=== PATIENT | male | born 1975 | race Caucasian/White ===

== ENCOUNTER 2018-01-05 21:10 | Emergency (ER) | payer MEDICAID ==
--- NOTE | 2018-01-05 22:51 | ED PDOC ---
Arrival/HPI - General Chief Complaint: Back Pain Time Seen by Provider: 01/05/18 22:42 Historian: Patient - History of Present Illness Narrative History of Present Illness (Text): 01/05/18 22:48 A 42 year old male, who denies any past medical history, presents to the emergency department complaining of lower back pain since today. Patient reports he injured his back while lifting some heavy luggage. Patient denies any other injuries, fever, chills, nausea, vomiting, abdominal pain, chest pain , shortness of breath, headache, dizziness or any other complaints. PMD: Dr. Harden Time/Duration: Other (today) Symptom Course: Unchanged Quality: Other Context: Other Past Medical History - Provider Review Nursing Documentation Reviewed: Yes - Infectious Disease Hx of Infectious Diseases: None - Cardiac Hx Cardiac Disorders: No - Pulmonary Hx Respiratory Disorders: No - Neurological Hx Neurological Disorder: No - HEENT Hx HEENT Disorder: No - Renal Hx Renal Disorder: No - Endocrine/Metabolic Hx Endocrine Disorders: No - Hematological/Oncological Hx Blood Disorders: No - Integumentary Hx Dermatological Disorder: No - Musculoskeletal/Rheumatological Hx Musculoskeletal Disorders: No - Gastrointestinal Hx Gastrointestinal Disorders: No - Genitourinary/Gynecological Hx Genitourinary Disorders: No - Psychiatric Hx Psychophysiologic Disorder: No Hx Substance Use: No - Anesthesia Hx Anesthesia: No Hx Anesthesia Reactions: No Hx Malignant Hyperthermia: No Family/Social History - Physician Review Nursing Documentation Reviewed: Yes Family/Social History: No Known Family HX Smoking Status: electronic Hx Alcohol Use: No Hx Substance Use: No Allergies/Home Meds Allergies/Adverse Reactions: Allergies No Known Allergies Allergy (Verified 01/05/18 21:51) Review of Systems - Physician Review All systems were reviewed & negative as marked: Yes - Review of Systems Constitutional: absent: Fevers, Night Sweats Respiratory: absent: SOB Cardiovascular: absent: Chest Pain Gastrointestinal: absent: Abdominal Pain, Nausea, Vomiting Musculoskeletal: Back Pain (lower) Neurological: absent: Headache, Dizziness Physical Exam Vital Signs Reviewed: Yes Vital Signs Temp Pulse Resp BP Pulse Ox 01/06/18 00:41 98.0 F 82 17 122/78 98 01/05/18 21:48 98.7 F 87 18 104/75 95 Temperature: Afebrile Blood Pressure: Normal Pulse: Regular Respiratory Rate: Normal Appearance: Positive for: Well-Appearing, Non-Toxic, Comfortable Pain Distress: None Mental Status: Positive for: Alert and Oriented X 3 - Systems Exam Head: Present: Atraumatic, Normocephalic Pupils: Present: PERRL Extroacular Muscles: Present: EOMI Conjunctiva: Present: Normal Respiratory/Chest: Present: Clear to Auscultation, Good Air Exchange. No: Respiratory Distress, Accessory Muscle Use Cardiovascular: Present: Regular Rate and Rhythm, Normal S1, S2. No: Murmurs Abdomen: No: Tenderness Back: Present: Paraspinal Tenderness (lower lumbar). No: CVA Tenderness, Midline Tenderness, Pain with Leg Raise Neurological: Present: GCS=15, CN II-XII Intact, Speech Normal, Motor Func Grossly Intact, Normal Sensory Function Skin: Present: Warm, Dry, Normal Color. No: Rashes Psychiatric: Present: Alert, Oriented x 3, Normal Insight, Normal Concentration Medical Decision Making ED Course and Treatment: 01/05/18 22:48 Impression: A 42 year old male with lower back pain Plan: -- Flexeril and Toradol -- Reassess and disposition Progress Notes: 01/06/18 00:26 On re-evaluation, the patient feels better and is in no acute distress. I have discussed the plan with the patient, who expresses understanding. Patient in agreement with plan to discharged home. Patient is stable for discharge. Patient was instructed to follow up with physician or return if symptoms persist /worsen or new concerning symptoms arise. - Medication Orders Current Medication Orders: Discontinued Medications Cyclobenzaprine HCl (Flexeril) 10 mg PO ONCE ONE Stop: 01/05/18 22:48 Last Admin: 01/05/18 23:04 Dose: 10 mg Ketorolac Tromethamine (Toradol) 60 mg IM ONCE ONE Stop: 01/05/18 22:48 Last Admin: 01/05/18 23:04 Dose: 60 mg MAR Pain Assessment Document 01/05/18 23:04 IT (Rec: 01/05/18 23:05 IT [email or web address] Pain Reassessment Is this a pain reassessment? No Sleep Is patient sleeping during reassessment? Yes Location Left, Right or Bilateral Right IM Administration Charges Document 01/05/18 23:04 IT (Rec: 01/05/18 23:05 IT [email or web address] Injection Site MAR Injection Site Right Deltoid Charges for Administration # of IM Administrations 1 - Scribe Statement The provider has reviewed the documentation as recorded by the Dana Schofield Provider Dana Attestation: All medical record entries made by the Tomibe were at my direction and personally dictated by me. I have reviewed the chart and agree that the record accurately reflects my personal performance of the history, physical exam, medical decision making, and the department course for this patient. I have also personally directed, reviewed, and agree with the discharge instructions and disposition. Disposition/Present on Arrival - Present on Arrival Any Indicators Present on Arrival: No History of DVT/PE: No History of Uncontrolled Diabetes: No Urinary Catheter: No History of Decub. Ulcer: No History Surgical Site Infection Following: None - Disposition Have Diagnosis and Disposition been Completed?: Yes Diagnosis: Low back strain, Muscle spasm Disposition: HOME/ ROUTINE Disposition Time: 00:26 Patient Plan: Discharge Condition: GOOD Additional Instructions: Rest/no strenuous physical activity/take meds as prescribed/follow up with your doctor Prescriptions: Cyclobenzaprine [Cyclobenzaprine HCl] 10 mg PO TID PRN #15 tab PRN Reason: Muscle Spasm Naproxen [Naprosyn] 500 mg PO BID PRN #14 tab PRN Reason: Pain Referrals: Javi Dodson MD [Primary Care Provider] - Follow up with primary Forms: [employer] ([employer])
[2018-01-06 00:44] VITALS: BP 122/78; PULSE 82; RESP 17; TEMP 98; O2SAT 98
== END 2018-01-06 00:44 | disposition home or self-care (01) ==
LOC: ED 21:10
DX: S39.012A Strain of muscle, fascia and tendon of lower back, initial encounter (principal); X50.0XXA Overexertion from strenuous movement or load, initial encounter; X50.9XXA Other and unspecified overexertion or strenuous movements or postures, initial encounter; M62.830 Muscle spasm of back
CPT/HCPCS: 96372; 99282; J1885

== ENCOUNTER 2019-02-19 00:52 | Observation (INO) | payer MEDICAID ==
--- NOTE | 2019-02-19 01:20 | ED PDOC ---
Arrival/HPI - General Chief Complaint: Chest Pain Time Seen by Provider: 02/19/19 00:56 Historian: Patient - History of Present Illness Narrative History of Present Illness (Text): 02/19/19 01:17 43 year old male, with no significant past medical history, presents to the emergency department with chest discomfort, for 2 days. Patient states symptoms are intermittent. Patient denies any associated shortness of breath. Patient also informs of some occasional back pain. Patient denies any fever, chills, cough, abdominal pain, nausea, vomiting, diarrhea, or any other complaints. Patient informs he is a smoker and has a family history of heart disease. Time/Duration: < week (2 days) Symptom Onset: Gradual Symptom Course: Unchanged, Intermittent Activities at Onset: Light Context: Home Past Medical History - Provider Review Nursing Documentation Reviewed: Yes - Infectious Disease Hx of Infectious Diseases: None - Cardiac Hx Cardiac Disorders: No - Pulmonary Hx Respiratory Disorders: No - Neurological Hx Neurological Disorder: No - HEENT Hx HEENT Disorder: No - Renal Hx Renal Disorder: No - Endocrine/Metabolic Hx Endocrine Disorders: No - Hematological/Oncological Hx Blood Disorders: No - Integumentary Hx Dermatological Disorder: No - Musculoskeletal/Rheumatological Hx Musculoskeletal Disorders: No - Gastrointestinal Hx Gastrointestinal Disorders: No - Genitourinary/Gynecological Hx Genitourinary Disorders: No - Psychiatric Hx Psychophysiologic Disorder: No Hx Substance Use: No - Anesthesia Hx Anesthesia: No Hx Anesthesia Reactions: No Hx Malignant Hyperthermia: No Family/Social History - Physician Review Nursing Documentation Reviewed: Yes Family/Social History: No Known Family HX Smoking Status: Light Smoker < 10 Cigarettes Daily Hx Alcohol Use: No Hx Substance Use: No Allergies/Home Meds Allergies/Adverse Reactions: Allergies No Known Allergies Allergy (Verified 01/05/18 21:51) Home Medications: Home Meds Medication Instructions Recorded Confirmed No Known Home Med 02/19/19 02/19/19 Review of Systems - Physician Review All systems were reviewed & negative as marked: Yes - Review of Systems Constitutional: absent: Fevers, Night Sweats Respiratory: absent: SOB, Cough Cardiovascular: Chest Pain Gastrointestinal: absent: Abdominal Pain, Diarrhea, Nausea, Vomiting Musculoskeletal: Back Pain Physical Exam - Systems Exam Head: Present: Atraumatic, Normocephalic Pupils: Present: PERRL Extroacular Muscles: Present: EOMI Conjunctiva: Present: Normal Mouth: Present: Moist Mucous Membranes Neck: Present: Normal Range of Motion Respiratory/Chest: Present: Clear to Auscultation, Good Air Exchange. No: Respiratory Distress, Accessory Muscle Use Cardiovascular: Present: Regular Rate and Rhythm, Normal S1, S2. No: Murmurs Abdomen: No: Tenderness, Distention, Peritoneal Signs Back: Present: Normal Inspection Upper Extremity: Present: Normal Inspection. No: Cyanosis, Edema Lower Extremity: Present: Normal Inspection. No: Edema Neurological: Present: GCS=15, CN II-XII Intact, Speech Normal Skin: Present: Warm, Dry, Normal Color. No: Rashes Psychiatric: Present: Alert, Oriented x 3, Normal Insight, Normal Concentration Medical Decision Making ED Course and Treatment: 02/19/19 01:22 Impression: 43 year old male presents with chest discomfort. Plan: -- EKG -- Cardiac Iso, CMP -- CBC, Platelets -- Celio X-ray -- Aspirin -- Reassess and disposition Prior Visits: Notes and results from previous visits were reviewed. Progress Notes: EKG reviewed by me, shows: Normal sinus rhythm @86 bpm No acute changes 02/19/19 01:59 Chest X-ray reviewed by me, shows: No acute process 02/19/19 02:17 Case discussed with medical coding technician and Dr Garza who accept patient to the hospitalist service. - RAD Interpretation Radiology Orders: 02/19/19 01:12 CHEST PORTABLE [RAD] Stat - Medication Orders Current Medication Orders: Aspirin (Aspirin) 325 mg PO ONCE STA Stop: 02/19/19 01:15 - Scribe Statement The provider has reviewed the documentation as recorded by the Dana Carlton Provider Scribe Attestation: All medical record entries made by the Scribe were at my direction and personally dictated by me. I have reviewed the chart and agree that the record accurately reflects my personal performance of the history, physical exam, medical decision making, and the department course for this patient. I have also personally directed, reviewed, and agree with the discharge instructions and disposition. Disposition/Present on Arrival - Present on Arrival Any Indicators Present on Arrival: No History of DVT/PE: No History of Uncontrolled Diabetes: No Urinary Catheter: No History of Decub. Ulcer: No History Surgical Site Infection Following: None - Disposition Have Diagnosis and Disposition been Completed?: Yes Diagnosis: Chest pain Disposition: HOSPITALIZED Disposition Time: 02:17 Patient Plan: Observation Patient Problems: Current Active Problems Problem Status Onset Chest pain Acute Condition: STABLE
[2019-02-19 01:27] LABS: HEMOGLOBIN 15.5 g/dL (14.0-18.0); MEAN CELL VOLUME 86.9 fl (80.0-105.0); MEAN CORPUSCULAR HEMOGLOBIN 29.9 pg (25.0-35.0); MEAN CORPUSCULAR HGB CONC 34.4 g/dl (31.0-37.0); MEAN PLATELET VOLUME 8.9 fl (7.0-11.0); RBC 5.19 10^6/uL (3.5-6.1); RED CELL DISTRIBUTION WIDTH 13.2 % (11.5-14.5); WHITE BLOOD COUNT 9.5 10^3/uL (4.5-11.0)
[2019-02-19] MEDS ORDERED: Aspirin 325 mg EC Tablets PO ONE (01:28)
[2019-02-19 01:31] LABS: INR 1.11; PARTIAL THROMBOPLASTIN TIME 39.1 Seconds (26.9-38.3); PROTHROMBIN TIME 12.3 SECONDS (9.4-12.5)
[2019-02-19 01:34] LABS: ALB/GLOB RATIO 1.2 (1.1-1.8); ALBUMIN 4.5 g/dL (3.0-4.8); ALT/SGPT 31 U/L (7-56); AST/SGOT 35 U/L (17-59); BLOOD UREA NITROGEN 15 mg/dL (7-21); CALCIUM 9.3 mg/dL (8.4-10.5); GFR NON-AFRICAN AMERICAN > 60
[2019-02-19 01:45] LABS: TROPONIN I < 0.01 ng/mL
--- NOTE | 2019-02-19 02:55 | CP.PCM.HP ---
<Capo Snyder - Last Filed: 02/19/19 06:22> History of Present Illness - History of Present Illness History of Present Illness: PGY-1 History and Physical for Dr. Garza Patient is a 43 year old male with no significant PMHx who presents with chief complaint of chest pain for the past 2 days. Patient states he first noticed the chest pain while he was driving. The pain feels like a "pulsating" pain in the left parasternal region, but patient denies feeling palpitations. The chest pain does not radiate to shoulders, back, or jaw. Patient has not experienced this pain in the past. Denies any recent heavy lifting. Patient has not tried anything to alleviate pain. Pain not affected by positional changes. Denies fevers, chills, DAVIS, n/v/d/c, dizziness, SOB, fatigue. PMHx: No known PMHx Surgical hx: Denies Allergies: NKA Social Hx: Smokes one Juul pod per day which he has done for some time. Also smokes 2 cigarettes daily. Denies alcohol or drug use. Family hx: Father - [place] age 65 Medications: No home meds PMD: Dr. Howard Present on Admission - Present on Admission Any Indicators Present on Admission: No Review of Systems - Constitutional Constitutional: absent: Chills, Fever - EENT Eyes: absent: Blurred Vision, Photophobia Nose/Mouth/Throat: absent: Nasal Congestion, Nasal Discharge - Cardiovascular Cardiovascular: Chest Pain, Chest Pain at Rest. absent: Chest Pain with Activity, Dyspnea, Pain Radiating to Arm/Neck/Jaw, Palpitations, Pedal Edema, Radiating Pain, Rapid Heart Rate - Respiratory Respiratory: absent: Cough, Wheezing - Gastrointestinal Gastrointestinal: absent: Nausea, Vomiting - Genitourinary Genitourinary: absent: Dysuria, Flank Pain - Musculoskeletal Musculoskeletal: absent: Back Pain, Neck Pain - Neurological Neurological: absent: Dizziness, Numbness, Focal Weakness, Syncope, Weakness - Psychiatric Psychiatric: absent: Anxiety, Depression - Hematologic/Lymphatic Hematologic: absent: Easy Bleeding, Easy Bruising Past Patient History - Infectious Disease Hx of Infectious Diseases: None - Past Social History Smoking Status: Light Smoker < 10 Cigarettes Daily - CARDIAC Hx Cardiac Disorders: No - PULMONARY Hx Respiratory Disorders: No - NEUROLOGICAL Hx Neurological Disorder: No - HEENT Hx HEENT Problems: No - RENAL Hx Chronic Kidney Disease: No - ENDOCRINE/METABOLIC Hx Endocrine Disorders: No - HEMATOLOGICAL/ONCOLOGICAL Hx Blood Disorders: No - INTEGUMENTARY Hx Dermatological Problems: No - MUSCULOSKELETAL/RHEUMATOLOGICAL Hx Musculoskeletal Disorders: No - GASTROINTESTINAL Hx Gastrointestinal Disorders: No - GENITOURINARY/GYNECOLOGICAL Hx Genitourinary Disorders: No - PSYCHIATRIC Hx Psychophysiologic Disorder: No Hx Substance Use: No - SURGICAL HISTORY Hx Surgeries: No - ANESTHESIA Hx Anesthesia: No Hx Anesthesia Reactions: No Hx Malignant Hyperthermia: No Meds Allergies/Adverse Reactions: Allergies Allergy/AdvReac Type Severity Reaction Status Date / Time No Known Allergies Allergy Verified 01/05/18 21:51 Physical Exam - Constitutional Appears: Non-toxic, No Acute Distress - Head Exam Head Exam: ATRAUMATIC, NORMOCEPHALIC - Eye Exam Eye Exam: EOMI, Normal appearance - ENT Exam ENT Exam: Mucous Membranes Moist - Respiratory Exam Respiratory Exam: Clear to Auscultation Bilateral, NORMAL BREATHING PATTERN. absent: Rales, Rhonchi, Wheezes - Cardiovascular Exam Cardiovascular Exam: REGULAR RHYTHM, RRR, +S1, +S2. absent: Diastolic murmur, JVD, +S4, Systolic Murmur Additional comments: No reproducible tenderness on palpation - GI/Abdominal Exam GI & Abdominal Exam: Normal Bowel Sounds, Soft. absent: Distended, Tenderness - Extremities Exam Extremities exam: Positive for: normal inspection, pedal pulses present. Negative for: pedal edema, tenderness - Neurological Exam Neurological exam: Alert, CN II-XII Intact, Oriented x3 - Psychiatric Exam Psychiatric exam: Normal Affect, Normal Mood - Skin Skin Exam: Dry, Intact, Normal Color, Warm Results - Vital Signs Recent Vital Signs: Last Vital Signs Temp 98.1 F 02/19/19 01:15 Pulse 82 02/19/19 02:18 Resp 18 02/19/19 02:18 BP 113/83 02/19/19 02:18 Pulse Ox 96 02/19/19 02:18 - Labs Result Diagrams: 02/19/19 01:15 02/19/19 01:15 Labs: Laboratory Results - last 24 hr 02/19/19 02/19/19 02/19/19 01:15 01:15 01:15 WBC 9.5 RBC 5.19 Hgb 15.5 Hct 45.1 MCV 86.9 MCH 29.9 MCHC 34.4 RDW 13.2 Plt Count 311 MPV 8.9 PT 12.3 INR 1.11 APTT 39.1 H Sodium 140 Potassium 4.0 Chloride 105 Carbon Dioxide 24 Anion Gap 15 BUN 15 Creatinine 0.9 Est GFR ( Amer) > 60 Est GFR (Non-Af Amer) > 60 Random Glucose 82 Calcium 9.3 Total Bilirubin 0.5 AST 35 ALT 31 Alkaline Phosphatase 69 Lactate Dehydrogenase 404 Total Creatine Kinase 128 Troponin I < 0.01 Total Protein 8.3 Albumin 4.5 Globulin 3.8 Albumin/Globulin Ratio 1.2 Assessment & Plan - Assessment and Plan (Free Text) Assessment: Atypical Chest Pain - ACS vs PE vs Costochondritis vs GERD -Monitor on telemetry -EKG NSR at 86, no ST or T changes -Initial troponins negative -PERC negative -CXR prelim 02/19 shows no active disease -ASA 325 given once in ED -EKG/troponins 0700,1300 - f/u -TSH/free T4 - f/u -Lipid panel - f/u -A1C - f/u Meds -ASA 81 mg PO daily -Lipitor 40 mg PO HS Assessment and plan discussed with Dr. Kayla Snyder, PGY-1 <Chhaya Garza - Last Filed: 02/19/19 19:15> Results - Vital Signs Recent Vital Signs: Last Vital Signs Temp 98.0 F 02/19/19 05:51 Pulse 82 02/19/19 10:00 Resp 20 02/19/19 05:51 BP 128/70 02/19/19 05:51 Pulse Ox 96 02/19/19 05:51 - Labs Result Diagrams: 02/19/19 06:05 02/19/19 06:05 Labs: Laboratory Results - last 24 hr 02/19/19 02/19/19 02/19/19 01:15 01:15 01:15 WBC 9.5 RBC 5.19 Hgb 15.5 Hct 45.1 MCV 86.9 MCH 29.9 MCHC 34.4 RDW 13.2 Plt Count 311 MPV 8.9 Neut % (Auto) Lymph % (Auto) Barnes % (Auto) Eos % (Auto) Baso % (Auto) Lymph # (Auto) Barnes # (Auto) Eos # (Auto) Baso # (Auto) Absolute Neuts (auto) PT 12.3 INR 1.11 APTT 39.1 H Sodium 140 Potassium 4.0 Chloride 105 Carbon Dioxide 24 Anion Gap 15 BUN 15 Creatinine 0.9 Est GFR ( Amer) > 60 Est GFR (Non-Af Amer) > 60 Random Glucose 82 Hemoglobin A1c Calcium 9.3 Total Bilirubin 0.5 AST 35 ALT 31 Alkaline Phosphatase 69 Lactate Dehydrogenase 404 Total Creatine Kinase 128 Troponin I < 0.01 Total Protein 8.3 Albumin 4.5 Globulin 3.8 Albumin/Globulin Ratio 1.2 Triglycerides Cholesterol LDL Cholesterol Direct HDL Cholesterol Free T4 TSH 3rd Generation 02/19/19 02/19/19 02/19/19 06:05 06:05 06:05 WBC 10.2 RBC 4.93 Hgb 14.4 Hct 42.7 MCV 86.6 MCH 29.2 MCHC 33.7 RDW 13.2 Plt Count 283 MPV 8.9 Neut % (Auto) 52.9 Lymph % (Auto) 37.5 H Barnes % (Auto) 6.4 H Eos % (Auto) 2.8 Baso % (Auto) 0.4 Lymph # (Auto) 3.8 H Barnes # (Auto) 0.7 H Eos # (Auto) 0.3 Baso # (Auto) 0.04 Absolute Neuts (auto) 5.39 PT INR APTT Sodium 139 Potassium 3.7 Chloride 105 Carbon Dioxide 27 Anion Gap 11 BUN 18 Creatinine 1.0 Est GFR ( Amer) > 60 Est GFR (Non-Af Amer) > 60 Random Glucose 96 Hemoglobin A1c Calcium 9.0 Total Bilirubin 0.4 AST 24 ALT 30 Alkaline Phosphatase 59 Lactate Dehydrogenase Total Creatine Kinase Troponin I Total Protein 7.2 Albumin 4.0 Globulin 3.2 Albumin/Globulin Ratio 1.2 Triglycerides 192 H Cholesterol 203 H LDL Cholesterol Direct 133 H HDL Cholesterol 37 Free T4 0.89 TSH 3rd Generation 2.62 02/19/19 02/19/19 02/19/19 06:05 07:00 12:50 WBC RBC Hgb Hct MCV MCH MCHC RDW Plt Count MPV Neut % (Auto) Lymph % (Auto) Barnes % (Auto) Eos % (Auto) Baso % (Auto) Lymph # (Auto) Barnes # (Auto) Eos # (Auto) Baso # (Auto) Absolute Neuts (auto) PT INR APTT Sodium Potassium Chloride Carbon Dioxide Anion Gap BUN Creatinine Est GFR ( Amer) Est GFR (Non-Af Amer) Random Glucose Hemoglobin A1c 5.9 Calcium Total Bilirubin AST ALT Alkaline Phosphatase Lactate Dehydrogenase Total Creatine Kinase Troponin I < 0.01 < 0.01 Total Protein Albumin Globulin Albumin/Globulin Ratio Triglycerides Cholesterol LDL Cholesterol Direct HDL Cholesterol Free T4 TSH 3rd Generation Attending/Attestation - Attestation I have personally seen and examined this patient.: Yes I have fully participated in the care of the patient.: Yes I have reviewed all pertinent clinical information: Yes Notes (Text): 02/19/19 19:15 Seen and examined. Discussed with resident. C/O non-specified, atypical CP.
[2019-02-19 05:52] VITALS: BP 128/70; RESP 20; TEMP 98; O2SAT 96
[2019-02-19 06:41] LABS: BASO # 0.04 K/mm3 (0.0-2.0); BASO % 0.4 % (0.0-3.0); EOS # 0.3 (0.0-0.7); EOS % 2.8 % (1.5-5.0); HEMOGLOBIN 14.4 g/dL (14.0-18.0); LYMPH # 3.8 (1.2-3.4); LYMPH % 37.5 % (22.0-35.0); MEAN CELL VOLUME 86.6 fl (80.0-105.0); MEAN CORPUSCULAR HEMOGLOBIN 29.2 pg (25.0-35.0); MEAN CORPUSCULAR HGB CONC 33.7 g/dl (31.0-37.0); MEAN PLATELET VOLUME 8.9 fl (7.0-11.0); MONO # 0.7 (0.1-0.6); MONO % 6.4 % (1.0-6.0); RBC 4.93 10^6/uL (3.5-6.1); RED CELL DISTRIBUTION WIDTH 13.2 % (11.5-14.5); WHITE BLOOD COUNT 10.2 10^3/uL (4.5-11.0)
[2019-02-19 07:02] LABS: LDL CHOLESTEROL 133 mg/dL (0-129)
[2019-02-19 07:08] LABS: FREE T4 0.89 ng/dL (0.78-2.19)
[2019-02-19 07:24] LABS: ALB/GLOB RATIO 1.2 (1.1-1.8); ALT/SGPT 30 U/L (7-56); AST/SGOT 24 U/L (17-59); BLOOD UREA NITROGEN 18 mg/dL (7-21); GFR NON-AFRICAN AMERICAN > 60; HDL CHOLESTEROL 37 mg/dL (29-60)
--- NOTE | 2019-02-19 09:00 | RAD ---
Date of service: 02/19/2019 HISTORY: chest pain COMPARISON: No prior. TECHNIQUE: 1 view obtained. FINDINGS: LUNGS: No active pulmonary disease. PLEURA: No significant pleural effusion identified, no pneumothorax apparent. CARDIOVASCULAR: No aortic atherosclerotic calcification present. Normal cardiac size. No pulmonary vascular congestion. OSSEOUS STRUCTURES: No significant abnormalities. VISUALIZED UPPER ABDOMEN: Normal. OTHER FINDINGS: None. IMPRESSION: No active disease.
--- NOTE | 2019-02-19 11:11 | CP.PCM.DIS ---
<Vasquez Abebeant - Last Filed: 02/20/19 14:26> Provider - Provider Date of Admission: 02/19/19 02:15 Attending physician: Blanquita Mayo MD Primary care physician: Javi Dodson MD Consults: 02/19/19 06:38 Cardiology Consult Routine Comment: Consulting Provider: Juan Ley Consulting Physician: Juan Ley Reason for Consult: Chest pain, r/o ACS Time Spent in preparation of Discharge (in minutes): 45 Diagnosis - Discharge Diagnosis (1) Chest pain Status: Acute Hospital Course - Lab Results Lab Results: Most Recent Lab Values WBC 10.2 10^3/uL (4.5-11.0) 02/19/19 06:05 RBC 4.93 10^6/uL (3.5-6.1) 02/19/19 06:05 Hgb 14.4 g/dL (14.0-18.0) 02/19/19 06:05 Hct 42.7 % (42.0-52.0) 02/19/19 06:05 MCV 86.6 fl (80.0-105.0) 02/19/19 06:05 MCH 29.2 pg (25.0-35.0) 02/19/19 06:05 MCHC 33.7 g/dl (31.0-37.0) 02/19/19 06:05 RDW 13.2 % (11.5-14.5) 02/19/19 06:05 Plt Count 283 10^3/uL (120.0-450.0) 02/19/19 06:05 MPV 8.9 fl (7.0-11.0) 02/19/19 06:05 Neut % (Auto) 52.9 % (50.0-68.0) 02/19/19 06:05 Lymph % (Auto) 37.5 % (22.0-35.0) H 02/19/19 06:05 Mcmullen % (Auto) 6.4 % (1.0-6.0) H 02/19/19 06:05 Eos % (Auto) 2.8 % (1.5-5.0) 02/19/19 06:05 Baso % (Auto) 0.4 % (0.0-3.0) 02/19/19 06:05 Lymph # (Auto) 3.8 (1.2-3.4) H 02/19/19 06:05 Mcmullen # (Auto) 0.7 (0.1-0.6) H 02/19/19 06:05 Eos # (Auto) 0.3 (0.0-0.7) 02/19/19 06:05 Baso # (Auto) 0.04 K/mm3 (0.0-2.0) 02/19/19 06:05 Absolute Neuts (auto) 5.39 (1.4-6.5) 02/19/19 06:05 PT 12.3 SECONDS (9.4-12.5) 02/19/19 01:15 INR 1.11 02/19/19 01:15 APTT 39.1 Seconds (26.9-38.3) H 02/19/19 01:15 Sodium 139 mmol/L (132-148) 02/19/19 06:05 Potassium 3.7 mmol/L (3.6-5.0) 02/19/19 06:05 Chloride 105 mmol/L (98-107) 02/19/19 06:05 Carbon Dioxide 27 mmol/L (21-33) 02/19/19 06:05 Anion Gap 11 (10-20) 02/19/19 06:05 BUN 18 mg/dL (7-21) 02/19/19 06:05 Creatinine 1.0 mg/dl (0.8-1.5) 02/19/19 06:05 Est GFR ( Amer) > 60 02/19/19 06:05 Est GFR (Non-Af Amer) > 60 02/19/19 06:05 Random Glucose 96 mg/dL (70-110) 02/19/19 06:05 Calcium 9.0 mg/dL (8.4-10.5) 02/19/19 06:05 Total Bilirubin 0.4 mg/dL (0.2-1.3) 02/19/19 06:05 AST 24 U/L (17-59) 02/19/19 06:05 ALT 30 U/L (7-56) 02/19/19 06:05 Alkaline Phosphatase 59 U/L (38-126) 02/19/19 06:05 Lactate Dehydrogenase 404 U/L (333-699) 02/19/19 01:15 Total Creatine Kinase 128 U/L (35-230) 02/19/19 01:15 Troponin I < 0.01 ng/mL 02/19/19 07:00 Total Protein 7.2 g/dL (5.8-8.3) 02/19/19 06:05 Albumin 4.0 g/dL (3.0-4.8) 02/19/19 06:05 Globulin 3.2 gm/dL 02/19/19 06:05 Albumin/Globulin Ratio 1.2 (1.1-1.8) 02/19/19 06:05 Triglycerides 192 mg/dL (35-160) H 02/19/19 06:05 Cholesterol 203 mg/dL (130-200) H 02/19/19 06:05 LDL Cholesterol Direct 133 mg/dL (0-129) H 02/19/19 06:05 HDL Cholesterol 37 mg/dL (29-60) 02/19/19 06:05 Free T4 0.89 ng/dL (0.78-2.19) 02/19/19 06:05 TSH 3rd Generation 2.62 mIU/mL (0.46-4.68) 02/19/19 06:05 - Hospital Course Hospital Course: Kaz Abebe DO 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 Patient states he first noticed the chest pain while he was driving. The pain feels like a "pulsating" pain in the left parasternal region, but patient denies feeling palpitations. Initial EKG showed no ST/T wave abnormalities; NSR 86/min. Troponins negative x3, repeat EKG following AM NSR HR 86 w/o ST/T wave abnormalities noted. Cardiology was consulted during this admission. Echo study performed and reported as normal echo study EF 67%. Cardiology recommended patient start a low triglyceride, low cholesterol diet and repeat blood work in 2-3 months. He is to be DC home and will perform stress test as outpt. Morning prior to discharge, patient was seen and evaluated at bedside. No acute events reported overnight Patient reported no fevers, chills, shortness of breath, abd pain, n/v/d/c, ur inary discomfort. Chest pain had resolved at time of evaluation in the morning. Discharge medications, and discharge plans were reviewed with patient Patient verbalized understanding of discharge plan as written below Patient was seen, evaluated, and discussed w/ attending physician Dr. Mayo prior to discharge - Date & Time of H&P Date of H&P: 02/09/19 Time of H&P: 13:29 Discharge Exam - Head Exam Head Exam: ATRAUMATIC, NORMOCEPHALIC - Eye Exam Eye Exam: EOMI, PERRL - Respiratory Exam Respiratory Exam: Clear to PA & Lateral, NORMAL BREATHING PATTERN, UNREMARKABLE - GI/Abdominal Exam GI & Abdominal Exam: Normal Bowel Sounds, Unremarkable - Neurological Exam Neurological exam: Alert, CN II-XII Intact, Oriented x3 - Psychiatric Exam Psychiatric exam: Normal Affect, Normal Mood - Skin Skin Exam: Dry, Normal Color, Warm Discharge Plan - Follow Up Plan Condition: STABLE Disposition: HOME/ ROUTINE Patient education suggested?: Yes Instructions: Chest Pain (DC) Additional Instructions: please follow up with your primary care doctor within 3 to 5 days of discharge Outpatient stress test is arranged by cardiology adal Rogers receive a call regarding scheduling of stress test Follow up with cardiology regarding outpatient stress test If your symptoms worsen, or new concerning symptoms arise please go to the nearest emergency department immediately Referrals: Javi Dodson MD [Primary Care Provider] - Juan Ley MD [Staff Provider] - <Blanquita Mayo - Last Filed: 02/20/19 15:23> Provider - Provider Date of Admission: 02/19/19 02:15 Attending physician: Blanquita Mayo MD Primary care physician: Javi Dodson MD Consults: 02/19/19 06:38 Cardiology Consult Routine Comment: Consulting Provider: Juan Ley Consulting Physician: Juan Ley Reason for Consult: Chest pain, r/o ACS Hospital Course - Lab Results Lab Results: Most Recent Lab Values WBC 10.2 10^3/uL (4.5-11.0) 02/19/19 06:05 RBC 4.93 10^6/uL (3.5-6.1) 02/19/19 06:05 Hgb 14.4 g/dL (14.0-18.0) 02/19/19 06:05 Hct 42.7 % (42.0-52.0) 02/19/19 06:05 MCV 86.6 fl (80.0-105.0) 02/19/19 06:05 MCH 29.2 pg (25.0-35.0) 02/19/19 06:05 MCHC 33.7 g/dl (31.0-37.0) 02/19/19 06:05 RDW 13.2 % (11.5-14.5) 02/19/19 06:05 Plt Count 283 10^3/uL (120.0-450.0) 02/19/19 06:05 MPV 8.9 fl (7.0-11.0) 02/19/19 06:05 Neut % (Auto) 52.9 % (50.0-68.0) 02/19/19 06:05 Lymph % (Auto) 37.5 % (22.0-35.0) H 02/19/19 06:05 Mcmullen % (Auto) 6.4 % (1.0-6.0) H 02/19/19 06:05 Eos % (Auto) 2.8 % (1.5-5.0) 02/19/19 06:05 Baso % (Auto) 0.4 % (0.0-3.0) 02/19/19 06:05 Lymph # (Auto) 3.8 (1.2-3.4) H 02/19/19 06:05 Mcmullen # (Auto) 0.7 (0.1-0.6) H 02/19/19 06:05 Eos # (Auto) 0.3 (0.0-0.7) 02/19/19 06:05 Baso # (Auto) 0.04 K/mm3 (0.0-2.0) 02/19/19 06:05 Absolute Neuts (auto) 5.39 (1.4-6.5) 02/19/19 06:05 PT 12.3 SECONDS (9.4-12.5) 02/19/19 01:15 INR 1.11 02/19/19 01:15 APTT 39.1 Seconds (26.9-38.3) H 02/19/19 01:15 Sodium 139 mmol/L (132-148) 02/19/19 06:05 Potassium 3.7 mmol/L (3.6-5.0) 02/19/19 06:05 Chloride 105 mmol/L (98-107) 02/19/19 06:05 Carbon Dioxide 27 mmol/L (21-33) 02/19/19 06:05 Anion Gap 11 (10-20) 02/19/19 06:05 BUN 18 mg/dL (7-21) 02/19/19 06:05 Creatinine 1.0 mg/dl (0.8-1.5) 02/19/19 06:05 Est GFR ( Amer) > 60 02/19/19 06:05 Est GFR (Non-Af Amer) > 60 02/19/19 06:05 Random Glucose 96 mg/dL (70-110) 02/19/19 06:05 Hemoglobin A1c 5.9 % (4.2-6.5) 02/19/19 06:05 Calcium 9.0 mg/dL (8.4-10.5) 02/19/19 06:05 Total Bilirubin 0.4 mg/dL (0.2-1.3) 02/19/19 06:05 AST 24 U/L (17-59) 02/19/19 06:05 ALT 30 U/L (7-56) 02/19/19 06:05 Alkaline Phosphatase 59 U/L (38-126) 02/19/19 06:05 Lactate Dehydrogenase 404 U/L (333-699) 02/19/19 01:15 Total Creatine Kinase 128 U/L (35-230) 02/19/19 01:15 Troponin I < 0.01 ng/mL 02/19/19 12:50 Total Protein 7.2 g/dL (5.8-8.3) 02/19/19 06:05 Albumin 4.0 g/dL (3.0-4.8) 02/19/19 06:05 Globulin 3.2 gm/dL 02/19/19 06:05 Albumin/Globulin Ratio 1.2 (1.1-1.8) 02/19/19 06:05 Triglycerides 192 mg/dL (35-160) H 02/19/19 06:05 Cholesterol 203 mg/dL (130-200) H 02/19/19 06:05 LDL Cholesterol Direct 133 mg/dL (0-129) H 02/19/19 06:05 HDL Cholesterol 37 mg/dL (29-60) 02/19/19 06:05 Free T4 0.89 ng/dL (0.78-2.19) 02/19/19 06:05 TSH 3rd Generation 2.62 mIU/mL (0.46-4.68) 02/19/19 06:05 Attending/Attestation - Attestation I have personally seen and examined this patient.: Yes I have fully participated in the care of the patient.: Yes I have reviewed all pertinent clinical information, including history, physical exam and plan: Yes Notes (Text): 02/20/19 15:15 Attending note ; Patient seen and examined with resident. Patient is alert and awake. Denies any chest pain, shortness of breath. denies any abdominal pain, nausea, vomiting. Patient is a 43 year old male with PMHx smoking , obesity is admitted for chest pain. 1. Chest Pain; EKG showed normal sinus rhythm without acute ST-T changes. Cardiac enzymes negative. Cardiology evaluation appreciated. Outpatient stress test will be recommended. Arranged for 03/13/19. 2. Active smoking; smoking cessation is strongly recommended . 3. Hypercholesterolemia; dietary education given. Patient is advised to follow- up with fasting lipid profile a few months. Patient will be discharged home today. Follow-up with PMD . 02/20/19 15:22 02/20/19 15:22
[2019-02-19 11:47] VITALS: PULSE 82
--- NOTE | 2019-02-19 12:17 | CARD ---
APPROVED REPORT Date of service: 02/19/2019 EKG Measurement Heart [id number] <Conclusion> Normal sinus rhythm Normal ECG
--- NOTE | 2019-02-19 17:07 | CARD ---
APPROVED REPORT Date of service: 02/19/2019 EXAM: Two-dimensional and M-mode echocardiogram with Doppler and color Doppler. INDICATION Abnormal EKG/Arrhythmia Mitral Valve Disease 2D DIMENSIONS Left Atrium (2D)3.2 (1.6-4.0cm)IVSd1.2 (0.7-1.1cm) LVDd3.5 (3.9-5.9cm)PWd1.2 (0.7-1.1cm) LVDs2.2 (2.5-4.0cm)FS (%) 36.8 % LVEF (%)67.6 (>50%) M-Mode DIMENSIONS Aortic Root2.90 (2.2-3.7cm)Aortic Cusp Exc.1.90 (1.5-2.0cm) Aortic Valve AoV Peak Phyhphtp431.0cm/Jimi Peak GR.5mmHg Mitral Valve MV E Wmninlts51.7cm/sMV A Miueoowl84.6cm/sE/A ratio1.2 TDI E/Lateral E'0.0E/Medial E'0.0 LEFT VENTRICLE The left ventricle is normal size. There is normal left ventricular wall thickness. The left ventricular function is normal. The left ventricular ejection fraction is within the normal range. There is normal LV segmental wall motion. The left ventricular diastolic function is normal. RIGHT VENTRICLE The right ventricle is normal size. There is normal right ventricular wall thickness. The right ventricular systolic function is normal. ATRIA The left atrium size is normal. The right atrium size is normal. AORTIC VALVE The aortic valve is normal in structure. No aortic regurgitation is present. There is no aortic valvular stenosis. MITRAL VALVE The mitral valve is not well visualized. There is no mitral valve regurgitation noted. There is no mitral valve stenosis. TRICUSPID VALVE The tricuspid valve is normal in structure. There is no tricuspid valve regurgitation noted. PULMONIC VALVE The pulmonary valve is normal in structure. There is no pulmonic valvular regurgitation. GREAT VESSELS The aortic root is normal in size. The IVC is normal in size and collapses >50% with inspiration. PERICARDIAL EFFUSION There is no pericardial effusion. <Conclusion> The left ventricle is normal size. There is normal left ventricular wall thickness. The left ventricular function is normal. The left ventricular ejection fraction is within the normal range. There is normal LV segmental wall motion. The left ventricular diastolic function is normal.
--- NOTE | 2019-02-19 17:46 | CARD ---
APPROVED REPORT Date of service: 02/19/2019 EKG Measurement Heart [id number] <Conclusion> Normal sinus rhythm Normal ECG
--- NOTE | 2019-02-20 03:02 | CON ---
DATE: 02/19/2019 LOCATION: Patient in room 269, bed 2. REASON FOR CONSULTATION: Chest pain. HISTORY OF PRESENT ILLNESS: A 43-year-old male admitted with a history that since last 2 to 3 days, he is getting throbbing type of pain at localized point on the left lower chest. It lasts 3 to 4 hours, then it gets relieved by itself and then it comes back, but it has no relation to exertion, no relation to deep breathing, no relation to change of posture. He never had any exertional chest pain in the past. It is not associated with any diaphoresis or any radiation. PAST MEDICAL HISTORY: Not significant. PERSONAL HISTORY: He smokes 2 to 3 cigarettes a day and denies drinking. FAMILY HISTORY: Positive for coronary artery disease, both mother and father had coronary artery disease. ALLERGIES: PATIENT DENIES ANY ALLERGIES. MEDICATIONS AT HOME: Patient does not take any medicines at home. REVIEW OF SYSTEMS: All the systems reviewed. Positives mentioned in HPI. Others were negative. PHYSICAL EXAMINATION VITAL SIGNS: Blood pressure 128/70, respiration 20, pulse 80, temperature 98.0. HEENT: Head is normocephalic. Eyes, pupils normal. Conjunctiva normal. Nose and throat normal. NECK: JVP low. Carotids equal. THORAX: AP diameter normal. LUNGS: Clear. CARDIOVASCULAR: S1, S2. ABDOMEN: Soft. No tenderness. No organomegaly. Bowel sounds normal. EXTREMITIES: No clubbing, no cyanosis. LABORATORY DATA: Shows WBC 10.2, hemoglobin 14.4, hematocrit 42.7, platelet 283. Sodium 139, potassium 3.7, BUN 18, creatinine 1.0, troponin x3 negative. AST, ALT normal. Triglyceride 192, cholesterol 203. TSH 2.62. Chest x-ray, no active disease. EKG shows normal sinus rhythm. DIAGNOSES: 1. Atypical chest pain, throbbing in nature, no relation to exertion. 2. Hyperlipidemia. 3. Hypertriglyceridemia. 4. Hypercholesterolemia. PLAN: Patient would have echo today and patient was advised to go on low triglyceride, low cholesterol diet and repeat blood work in 2 to 3 months. Patient wants to go home. He will come back to do a stress test as outpatient. I gave information to coronary department and patient will get in touch with them to schedule a nuclear stress as outpatient. In the meantime, patient's pain is atypical and is totally relieved now and he wants to go home today. Juan Ley MD
== END 2019-02-19 13:54 | disposition home or self-care (01) ==
LOC: ED 00:52 → ERH 02:15 → 2RNO 04:17
PROVIDERS: ADMIT Internal Medicine; ATTEND Internal Medicine
DX: R07.89 Other chest pain (principal); F17.210 Nicotine dependence, cigarettes, uncomplicated; E78.1 Pure hyperglyceridemia; E78.00 Pure hypercholesterolemia, unspecified; E78.5 Hyperlipidemia, unspecified; Z82.49 Family history of ischemic heart disease and other diseases of the circulatory system
CPT/HCPCS: 36415; 71045; 80053; 80061; 82550; 83036; 83615; 84439; 84443; 84484; 85025; 85027; 85610; 85730; 93005; 93306; 99285; G0378; J1644